=== PATIENT | male | born 1995 ===

== ENCOUNTER → 2017-01-04 | Outpatient (REF) | payer OTHER ==
[2017-01-04 14:09] LABS: FERRITIN 141 NG/ML (26-388); PERCENT SATURATION 51.3 % (19.7-37.4); TOTAL IRON BINDING CAPACITY 271 UG/DL (250-450)
[2017-01-04 14:22] LABS: RETIC HEMOGLOBIN CONTENT CHr 29.1 PG (24-36); RETICULOCYTE % ADVIA2120 2.3 % (0.5-1.5)
[2017-01-04 14:46] LABS: HIV SCRN NEGATIVE (NEGATIVE); HIV SCRN1 NEGATIVE (NEGATIVE)
[2017-01-04 14:47] LABS: CONTROL LINE INT CTR LINE PRESENT
== END ==
LOC: M LAB REF 09:00
PROVIDERS: ATTEND Internal Medicine Medical Oncology
DX: D61.9 Aplastic anemia, unspecified (principal)